=== PATIENT | male | born 1985 | race Caucasian/White ===

== ENCOUNTER 2018-01-30 16:00 | Emergency (ER) | payer OTHER ==
--- NOTE | 2018-01-30 17:19 | EDPHY ---
H & P Time Seen by Provider: 01/30/18 16:02 HPI/ROS: CHIEF COMPLAINT: Laceration left index finger HISTORY OF PRESENT ILLNESS: 32-year-old male presents to the emergency department with a laceration to the left index finger. The patient was at work just prior to arrival and cut the left index finger with a razor blade. The incident happened just prior to arrival. Right-hand dominant. He believes his tetanus shot is current. ROS: Denies numbness or tingling in his fingers, retained foreign body. Past Medical/Surgical History: Negative Social History: Single and lives in [place] Smoking Status: Current every day smoker Physical Exam: On examination the patient has a 3 cm flap laceration to the dorsal aspect of the left index finger overlying proximal phalanx. Normal sensation to light touch with normal 2 point discrimination. No evidence of extensor tendon laceration. No evidence of retained foreign body. No palpable bony tenderness. Full range of motion of her fingers. Constitutional: Initial Vital Signs Temperature (C) 36.7 C 01/30/18 16:04 Heart Rate 98 01/30/18 16:04 Respiratory Rate 18 01/30/18 16:04 Blood Pressure 146/83 H 01/30/18 16:04 O2 Sat (%) 95 01/30/18 16:04 O2 Delivery Mode Room Air Allergies/Adverse Reactions: No Known Allergies Allergy (Unverified 01/30/18 16:04) Home Medications: Medication Instructions Recorded NK [No Known Home Meds] 01/30/18 MDM/Departure - MDM Procedures: Laceration repair. Verbal consent was obtained from the patient. The 3 cm flap laceration on the left index finger was anesthetized using digital block using 1% lidocaine without epinephrine 0.5% bupivacaine without epinephrine. The wound was irrigated with saline, draped and explored to its base with a gloved finger. There were no deep structures involved. No tendon injury was identified. The wound was repaired with 4 0 Ethilon, 7 sutures. The wound repair was complex. The procedure was performed by myself. ED Course/Re-evaluation: 32-year-old male presents to the emergency department with left finger laceration. The wound was repaired, see procedure note. Patient's tetanus shot is current. He was given wound care precautions. - Depart Disposition: Home, Routine, Self-Care Clinical Impression: Laceration of left index finger Qualifiers: Encounter type: initial encounter Damage to nail status: without damage Foreign body presence: without foreign body Qualified Code(s): S61.211A - Laceration without foreign body of left index finger without damage to nail, initial encounter Condition: Good Instructions: Laceration (ED), Care For Your Stitches (ED), Acute Wounds (ED) Additional Instructions: Wound Care Follow-Up: Removal of sutures in 10 days. Suture removal is complimentary in uncomplicated cases. Infection or abnormal findings would require reevaluation by the MD. In that case, you may be billed. Return if you notice any signs or symptoms of infection or any other concerns. Keep wound dry, clean and protected while working. Referrals: NONE *PRIMARY CARE P,. [Primary Care Provider] - As per Instructions
[2018-01-30 17:41] VITALS: BP 135/78
== END 2018-01-30 17:40 | disposition home or self-care (01) ==
PROC: 0HQGXZZ Repair Left Hand Skin, External Approach (ICD-10-PCS; principal; 2018-01-30)
DX: S61.211A Laceration without foreign body of left index finger without damage to nail, initial encounter (principal); W26.8XXA Contact with other sharp object(s), not elsewhere classified, initial encounter; Y99.0 Civilian activity done for income or pay; Y93.89 Activity, other specified; F17.200 Nicotine dependence, unspecified, uncomplicated